=== PATIENT | male | born 1945 | race Caucasian/White ===

== ENCOUNTER 2021-08-02 07:50 | Day surgery (SDC) | payer MEDICARE, BC ==
[~2021-08-02] VITALS: Ht 175.3 cm; Wt 79.5 kg
[~2021-08-02 07:50] MED LIST: ACET650T14 PO; ASPI-611 PO; ATOR40TA PO; CARB200T2 PO; CARV3.12 PO; KEP500T PO; LOSA25TA96 PO; TICA90TA PO
[2021-08-02] MEDS ORDERED: MIDAZolam 1 MG/ML 5ML VIAL ONE ×2 (07:56)
[2021-08-02] MEDS ORDERED: LIDOcaine Viscous 15ml cup ONE (07:56)
[2021-08-02] MEDS ORDERED: fentaNYL/PF 50MCG/1 ML 2ML syringe ONE (07:56)
[2021-08-02 08:07] VITALS: BP 153/76
[2021-08-02] MEDS ORDERED: CARV3.12 PO (08:10)
[2021-08-02] MEDS ORDERED: NAPR-1154 PO (08:11)
[2021-08-02] MEDS ORDERED: FLUT16SP20 BOTHNARES (08:14)
[2021-08-02 09:10] VITALS: BP 126/69
[2021-08-02 09:20] VITALS: BP 125/87
[2021-08-02 09:30] VITALS: BP 121/70
[2021-08-02 09:40] VITALS: BP 123/46
== END 2021-08-02 10:25 | disposition home or self-care (01) ==
LOC: GI LAB 07:50
PROVIDERS: ATTEND Internal Medicine Gastroenterology
DX: D50.9 Iron deficiency anemia, unspecified (principal); K57.30 Diverticulosis of large intestine without perforation or abscess without bleeding; D12.2 Benign neoplasm of ascending colon; K44.9 Diaphragmatic hernia without obstruction or gangrene; K22.70 Barrett's esophagus without dysplasia; K29.50 Unspecified chronic gastritis without bleeding; K31.89 Other diseases of stomach and duodenum; I10 Essential (primary) hypertension; I25.10 Atherosclerotic heart disease of native coronary artery without angina pectoris; K21.9 Gastro-esophageal reflux disease without esophagitis; Z79.82 Long term (current) use of aspirin; Z95.1 Presence of aortocoronary bypass graft; Z95.5 Presence of coronary angioplasty implant and graft; Z79.899 Other long term (current) drug therapy
CPT/HCPCS: 43239; 45380; 88305; 88342; G0500; J2250; J3010; J7040; Z7512; 99152; 99153; A4620

== ENCOUNTER 2024-09-22 10:49 | Day surgery (SDC) | payer MEDICARE, OTHER ==
[2024-09-21 12:56] LABS: BASOPHILS % (AUTO) 0.6 % (0-1); EOSINOPHILS # (AUTO) 0.2 X10'3 (0-0.9); EOSINOPHILS % (AUTO) 3.4 % (0-6); HEMATOCRIT 45.3 % (42.0-52.0); HEMOGLOBIN 15.1 g/dl (14.0-17.9); LYMPHOCYTES # (AUTO) 1.3 X10'3 (1.1-4.8); LYMPHOCYTES % (AUTO) 19.9 % (21-51); MEAN CORPUSCULAR HEMOGLOBIN 31.1 PG (27.0-31.0); MEAN CORPUSCULAR HGB CONC 33.3 g/dL (33.0-36.5); MEAN CORPUSCULAR VOLUME 93.4 FL (78-98); MEAN PLATELET VOLUME 7.8 FL (7.4-10.4); MONOCYTES # (AUTO) 0.8 X10'3 (0-0.9); NEUTROPHILS # (AUTO) 4.2 X10'3 (1.8-7.7); NEUTROPHILS % (AUTO) 64.1 % (42-75); PLATELET COUNT 244 X10'3 (140-440); RED BLOOD COUNT 4.85 X10'6 (4.70-6.10); RED CELL DISTRIBUTION WIDTH 13.8 % (11.5-14.5); WHITE BLOOD COUNT 6.5 X10'3 (4.5-11.0)
[2024-09-21 13:08] LABS: ALBUMIN 3.8 G/DL (3.4-5.0); ANION GAP 4 (8-16); APTT 28 SECONDS (22-32); BLOOD UREA NITROGEN 16 MG/DL (7-18); BUN/CREATININE RATIO 23.9 (10.0-20.0); CALCIUM 8.6 MG/DL (8.5-10.1); CHLORIDE 102 MMOL/L (99-107); CHOL/HDL RATIO 2.7 (0.00-4.99); CHOLESTEROL 161 MG/DL (0-200); CREATININE 0.67 MG/DL (0.60-1.10); GLUCOSE 94 MG/DL (70-104); HDL CHOLESTEROL 60 MG/DL (35-60); INR 1.1 INR; LDL CHOLESTEROL 76 MG/DL (50-100); POTASSIUM 4.5 MMOL/L (3.5-5.1); PROTHROMBIN TIME 10.8 SECONDS (9.0-12.0); SODIUM 138 MMOL/L (135-145); TOTAL CARBON DIOXIDE 31.6 MMOL/L (24-32); TRIGLYCERIDES 120 MG/DL (20-135); eGFR > 90 ML/MIN
[2024-09-22] VITALS (8 sets, daily range): BP systolic 138–179; BP diastolic 67–83; PULSE 49–63; RESP 12–16; TEMP 97.9; O2SAT 96–99
[~2024-09-22] VITALS: Ht 175.3 cm; Wt 82.6 kg
[~2024-09-22 10:49] MED LIST changes: +FLUT16SP35 BOTHNARES; +LOSA-415 PO; -LOSA25TA96 PO; +NAPR-1154 PO; -TICA90TA PO
[2024-09-22] MEDS ORDERED: CARV6.253 PO (11:38)
[2024-09-22] MEDS: normal saline 1,000 ML IV SCH (11:49)
[2024-09-22] MEDS: LORazepam 0.5 MG tablet PO PRN (11:49)
[2024-09-22] MEDS: diphenhydrAMINE 25mg capsule PO PRN (11:49)
[2024-09-22] MEDS ORDERED: LIDOcaine 1% 30ml preserv. free vial ONE (12:12)
[2024-09-22] MEDS ORDERED: midazolam 1 mg/ML 2ml injection ONE (12:12)
[2024-09-22] MEDS ORDERED: fentaNYL/PF 50MCG/1 ML 2ML syringe ONE (12:12)
[2024-09-22] MEDS ORDERED: iohexol 350MG/ML 100ml bottle IV ONE ×2 (12:13→13:42)
[2024-09-22] MEDS ORDERED: iohexol 350 MG/ML 50ML vial IV ONE (13:54)
[2024-09-22] MEDS: hydrALAZINE 20mg/ml inj. IV ONE (14:43)
[2024-09-22] MEDS ORDERED: HYDROcodone/acetaminophen 10/325mg tab PO PRN (15:00)
[2024-09-22] MEDS ORDERED: HYDROcodone/acetaminophen 5mg/325mg tablet PO PRN (15:00)
== END 2024-09-22 16:10 | disposition home or self-care (01) ==
LOC: SSTAY O 10:49
PROVIDERS: ATTEND Student in an Organized Health Care Education/Training Program
DX: R94.39 Abnormal result of other cardiovascular function study (principal); I25.10 Atherosclerotic heart disease of native coronary artery without angina pectoris; I25.82 Chronic total occlusion of coronary artery; Z79.01 Long term (current) use of anticoagulants; D64.9 Anemia, unspecified; I25.2 Old myocardial infarction; I25.810 Atherosclerosis of coronary artery bypass graft(s) without angina pectoris; I10 Essential (primary) hypertension; E78.5 Hyperlipidemia, unspecified; Z79.899 Other long term (current) drug therapy
CPT/HCPCS: 36415; 80048; 80061; 85025; 85610; 85730; 93005; 93459; A6258; C1760; J0360; J1644; J2003; J2250; J3010; J7030; Q0163; Q9967; Z7610; 99152; 99153

== ENCOUNTER → 2024-10-23 | Outpatient (CLI) | payer MEDICARE, OTHER ==
[~2024-10-23] MED LIST changes: -ACET650T14 PO; -CARV3.12 PO; +CARV6.253 PO; -NAPR-1154 PO
--- NOTE | 2024-10-23 11:05 | RADIOLOGY REPORT ---
EXAM: DI CHEST,TWO VIEWS CLINICAL HISTORY: PRODUCTIVE COUGH COMPARISON: None TECHNIQUE: Frontal and lateral view of the chest was obtained FINDINGS: Lines and Tubes: None Lungs: No focal consolidation. Pleura: No effusion. No pneumothorax. Cardiomediastinal contours: Unremarkable. Atherosclerotic vascular calcifications of the thoracic ao rta are noted. Bones: No acute osseous abnormality. IMPRESSION: No acute cardiopulmonary disease.
--- NOTE | 2024-10-23 12:52 | RADIOLOGY REPORT ---
INDICATION: CONTINUED LEFT WRIST PAIN OVER DISTAL RADIUS POST FALL X1 WEEK AGO TECHNIQUE: 4 radiographic views of the left wrist were obtained. 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 Nondisplaced distal radial fracture
== END | disposition home or self-care (01) ==
LOC: RAD 10:08
PROVIDERS: ATTEND Nurse Practitioner Family
DX: S52.592A Other fractures of lower end of left radius, initial encounter for closed fracture (principal); R05.9 Cough, unspecified; M18.12 Unilateral primary osteoarthritis of first carpometacarpal joint, left hand; R06.02 Shortness of breath; M25.532 Pain in left wrist; W19.XXXA Unspecified fall, initial encounter; Y93.89 Activity, other specified; Y92.89 Other specified places as the place of occurrence of the external cause; Y99.8 Other external cause status
CPT/HCPCS: 71046; 73110